=== PATIENT | male | born 2000 | race African-American/Black ===

== ENCOUNTER 2021-07-11 15:22 | Emergency (ER) | payer OTHER, SELFPAY ==
--- NOTE | 2021-07-11 16:00 | ER ---
Nurse's Notes [facility] Name: Costa Sapp Age: 20 yrs Sex: Male : 2000 Arrival Date: 07/11/2021 Time: 15:26 Bed 12 Private MD: Diagnosis: Unspecified sexually transmitted disease Presentation: 07/11 15:48 Chief complaint: Patient states: Burning with urination, reports yellow/white penile jl7 discharge with testicular pain x 2 days. Coronavirus screen: Vaccine status: Patient reports being unvaccinated. At this time, the client does not indicate any symptoms associated with coronavirus-19. Ebola Screen: No symptoms or risks identified at this time. Initial Sepsis Screen: Does the patient meet any 2 criteria? No. Patient's initial sepsis screen is negative. Does the patient have a suspected source of infection? No. Patient's initial sepsis screen is negative. Risk Assessment: Do you want to hurt yourself or someone else? Patient reports no desire to harm self or others. Onset of symptoms was July 09, 2021. Care prior to arrival: None. 15:48 Method Of Arrival: Ambulatory jl7 15:48 Acuity: DUARTE 4 jl7 Triage Assessment: 15:50 General: Appears in no apparent distress. uncomfortable, Behavior is calm, cooperative, jl7 appropriate for age. Pain: Complains of pain in burning with urination Pain currently is 8 out of 10 on a pain scale. Neuro: Level of Consciousness is awake, alert, obeys commands, Oriented to person, place, time, situation. Cardiovascular: Patient's skin is warm and dry. Respiratory: Airway is patent Respiratory effort is even, unlabored, Respiratory pattern is regular, symmetrical. : Reports burning with urination. Derm: Skin is pink, warm \T\ dry. Historical: - Allergies: 15:50 No Known Allergies; jl7 - Home Meds: 15:50 None [Active]; jl7 - PMHx: 15:50 None; jl7 - PSHx: 15:50 None; jl7 - Immunization history:: Adult Immunizations unknown. - Social history:: Smoking status: Patient denies any tobacco usage or history of. - Family history:: not pertinent. - Hospitalizations: : No recent hospitalization is reported. Screenin:55 Abuse screen: Denies threats or abuse. Denies injuries from another. Nutritional ld1 screening: No deficits noted. Tuberculosis screening: No symptoms or risk factors identified. Fall Risk None identified. Assessment: 15:55 General: Appears in no apparent distress. comfortable, Behavior is calm, cooperative, ld1 appropriate for age. Pain: Denies pain. Neuro: Level of Consciousness is awake, alert, obeys commands, Oriented to person, place, time, situation. Cardiovascular: Capillary refill < 3 seconds Patient's skin is warm and dry. Respiratory: Airway is patent Respiratory effort is even, unlabored, Respiratory pattern is regular, symmetrical. GI: Abdomen is flat, non-distended. : Reports burning with urination. EENT: No signs and/or symptoms were reported regarding the EENT system. Derm: No signs and/or symptoms reported regarding the dermatologic system. Musculoskeletal: No signs and/or symptoms reported regarding the musculoskeletal system. Vital Signs: 15:48 BP 145 / 77; Pulse 68; Resp 17; Temp 98.2; Pulse Ox 100% ; Weight 102.06 kg; Height 6 jl7 ft. 0 in. (182.88 cm) (R); Pain 8/10; 15:55 BP 154 / 76; Pulse 59; Resp 18; Pulse Ox 100% on R/A; ld1 15:48 Body Mass Index 30.52 (102.06 kg, 182.88 cm) jl7 ED Course: 15:26 Patient arrived in ED. mr 15:43 Eligio Hunt MD is Attending Physician. rn 15:43 Casey Stapleton PA is PHCP. cp 15:50 Triage completed. jl7 15:50 Arm band placed on right wrist. jl7 15:55 Patient has correct armband on for positive identification. Bed in low position. Call ld1 light in reach. Side rails up X2. Pulse ox on. NIBP on. Door closed. Noise minimized. Warm blanket given. 15:55 No provider procedures requiring assistance completed. ld1 16:13 Patient did not have IV access during this emergency room visit. ld1 Administered Medications: 16:00 Drug: Rocephin (cefTRIAXone) 250 mg Route: IM; Site: left gluteus; ld1 16:12 Follow up: Response: No adverse reaction ld1 16:00 Drug: metroNIDAZOLE 2 grams Route: PO; ld1 16:13 Follow up: Response: No adverse reaction ld1 Outcome: 15:59 Discharge ordered by . rn 16:13 Discharged to home ambulatory. ld1 16:13 Condition: stable 16:13 Discharge instructions given to patient, Instructed on discharge instructions, follow up and referral plans. medication usage, Demonstrated understanding of instructions, follow-up care, medications, Prescriptions given X 1. 16:13 Patient left the ED. ld1 Signatures: RicardoAntonia hadley mr GilbertEligio MD MD rn Casey Stapleton PA PA cp Leal, Jahala, RN RN jl7 Angelina Sanchez RN RN ld1
--- NOTE | 2021-07-11 16:00 | EDPHYS ---
Physician Documentation [facility] Name: Costa Sapp Age: 20 yrs Sex: Male : 2000 Arrival Date: 07/11/2021 Time: 15:26 Bed 12 Private MD: ED Physician Eligio Hunt HPI: 07/11 15:56 This 20 yrs old Black Male presents to ER via Ambulatory with complaints of STD rn Exposure. 15:56 The patient presents with a possible STD exposure, symptoms include yellow penile fern picker. Onset: The symptoms/episode began/occurred yesterday. Modifying factors: The symptoms are alleviated by nothing, the symptoms are aggravated by urinating. Associated signs and symptoms: Pertinent negatives: abdominal pain, fever. Severity of symptoms: At their worst the symptoms were mild, in the emergency department the symptoms are unchanged. The patient has not experienced similar symptoms in the past. The patient has not recently seen a physician. Patient states was out of town, had sex with a girl he did not know, now since yesterday has been having yellowish penile discharge. Also reports dysuria. No fever or abdominal pain. No other problems.. Historical: - Allergies: 15:50 No Known Allergies; jl7 - Home Meds: 15:50 None [Active]; jl7 - PMHx: 15:50 None; jl7 - PSHx: 15:50 None; jl7 - Immunization history:: Adult Immunizations unknown. - Social history:: Smoking status: Patient denies any tobacco usage or history of. - Family history:: not pertinent. - Hospitalizations: : No recent hospitalization is reported. ROS: 15:56 Constitutional: Negative for fever, chills, and weight loss, Abdomen/GI: Negative for rn abdominal pain, nausea, vomiting, diarrhea, and constipation, : Positive for penile discharge and dysuria Skin: Negative for injury, rash, and discoloration. Exam: 15:56 Constitutional: This is a well developed, well nourished patient who is awake, alert, rn and in no acute distress. Head/Face: Normocephalic, atraumatic. Eyes: Periorbital areas with no swelling, redness, or edema. Cardiovascular: Regular rate and rhythm. No pulse deficits. Respiratory: Speaking full sentences, unlabored. Neuro: Awake and alert, GCS 15 Vital Signs: 15:48 BP 145 / 77; Pulse 68; Resp 17; Temp 98.2; Pulse Ox 100% ; Weight 102.06 kg; Height 6 jl7 ft. 0 in. (182.88 cm) (R); Pain 8/10; 15:55 BP 154 / 76; Pulse 59; Resp 18; Pulse Ox 100% on R/A; ld1 15:48 Body Mass Index 30.52 (102.06 kg, 182.88 cm) jl7 MDM: 15:43 Patient medically screened. rn 15:56 Differential diagnosis: urethritis, STI, chlamydia, gonorrhea, trichomonas. Data rn reviewed: vital signs, nurses notes, and as a result, I will discharge patient. Counseling: I had a detailed discussion with the patient and/or guardian regarding: the historical points, exam findings, and any diagnostic results supporting the discharge/admit diagnosis, the need for outpatient follow up, to return to the emergency department if symptoms worsen or persist or if there are any questions or concerns that arise at home. Special discussion: I discussed with the patient/guardian in detail that at this point there is no indication for admission to the hospital. It is understood, however, that if the symptoms persist or worsen the patient needs to return immediately for re-evaluation. ED course: Discussed with the patient that swabs and results will take 2 or 3 days to return. Agrees to just take empiric treatment. Will DC home with doxycycline in addition to the Rocephin and Flagyl given here.. Administered Medications: 16:00 Drug: Rocephin (cefTRIAXone) 250 mg Route: IM; Site: left gluteus; ld1 16:12 Follow up: Response: No adverse reaction ld1 16:00 Drug: metroNIDAZOLE 2 grams Route: PO; ld1 16:13 Follow up: Response: No adverse reaction ld1 Disposition Summary: 07/11/21 15:59 Discharge Ordered Location: Home rn Problem: new rn Symptoms: are unchanged rn Condition: Stable rn Diagnosis - Unspecified sexually transmitted disease rn Followup: rn - With: Private Physician - When: As needed - Reason: Recheck today's complaints, Re-evaluation by your physician Discharge Instructions: - Discharge Summary Sheet rn - Preventing Sexually Transmitted Infections, Adult rn Forms: - Medication Reconciliation Form rn - Thank You Letter rn - Antibiotic engineer internship - Prescription Opioid Use rn Prescriptions: - Doxycycline Monohydrate 100 mg Oral Tablet - take 1 tablet by ORAL route every 12 hours for 10 days; 20 tablet; Refills: 0, rn Product Selection Permitted Signatures: Eligio Hunt MD MD rn Andi Minaya RN RN jl7 Angelina Sanchez RN RN ld1
[2021-07-11] MEDS ORDERED: metroNIDAZOLE 500 MG TABLET ONE (16:29)
[2021-07-11] MEDS ORDERED: CEFTRIAXONE 250 MG/VIAL ONE (16:29)
[2021-07-11] MEDS ORDERED: WATER FOR INJ,STERILE 10 ML ONE (16:30)
[2021-07-11 16:42] VITALS: TEMP 98.2; O2SAT 100
[2021-07-11 16:43] VITALS: BP 154/76
== END 2021-07-11 16:13 | disposition home or self-care (01) ==
LOC: ER 15:22
DX: A64 Unspecified sexually transmitted disease (principal)
CPT/HCPCS: 96372; 99283; J0696

== ENCOUNTER 2021-09-23 18:39 | Emergency (ER) | payer SELFPAY ==
--- NOTE | 2021-09-23 19:04 | EDPHYS ---
Physician Documentation [facility] Name: Costa Sapp Age: 20 yrs Sex: Male : 2000 Arrival Date: 09/23/2021 Time: 18:42 Bed 16 Private MD: ED Physician James Bynum HPI: 09/23 19:02 This 20 yrs old Black Male presents to ER via Unassigned with complaints of STD kb Exposure. 19:02 The patient presents with Onset: The symptoms/episode began/occurred 2 day(s) ago. kb Modifying factors: The symptoms are alleviated by nothing, the symptoms are aggravated by urinating. Associated signs and symptoms: Pertinent positives: dysuria, Pertinent negatives: abdominal pain, constipation, diarrhea, fever, hematuria, nausea, vomiting. Severity of symptoms: At their worst the symptoms were mild, moderate, in the emergency department the symptoms are unchanged. The patient has not experienced similar symptoms in the past. The patient has not recently seen a physician. Pt reports burning with urination and yellow penile discharge for 2 days. ROS: 19:01 Constitutional: Negative for fever, chills, and weight loss. kb 19:01 : Positive for burning with urination, penile discharge. 19:01 All other systems are negative. Exam: 19:01 Constitutional: This is a well developed, well nourished patient who is awake, alert, kb and in no acute distress. Head/Face: Normocephalic, atraumatic. ENT: Moist Mucous membranes Respiratory: Respirations even and unlabored. No increased work of breathing, no retractions or nasal flaring. Skin: Warm, dry with normal turgor. Normal color. MS/ Extremity: Pulses equal, no cyanosis. Neurovascular intact. Full, normal range of motion. Neuro: Awake and alert, GCS 15, oriented to person, place, time, and situation. Moves all extremities. Normal gait. Psych: Awake, alert, with orientation to person, place and time. Behavior, mood, and affect are within normal limits. MDM: 18:55 Patient medically screened. kb 19:01 Data reviewed: vital signs, nurses notes. Data interpreted: Pulse oximetry: on room air kb is 100 %. Interpretation: normal. Counseling: I had a detailed discussion with the patient and/or guardian regarding: the historical points, exam findings, and any diagnostic results supporting the discharge/admit diagnosis, the need for outpatient follow up, a family practitioner, to return to the emergency department if symptoms worsen or persist or if there are any questions or concerns that arise at home. Administered Medications: 19:17 Drug: Zithromax (azithromycin) 1 grams Route: PO; bb 19:17 Follow up: Response: No adverse reaction bb 19:17 Drug: Rocephin (cefTRIAXone) 500 mg Route: IM; Site: right deltoid; bb 19:17 Follow up: Response: No adverse reaction bb Disposition: 23:23 Co-signature as Attending Physician, James Bynum MD. [email or web address] Disposition Summary: 09/23/21 19:03 Discharge Ordered Location: Home kb Condition: Stable kb Diagnosis - Unspecified sexually transmitted disease kb Followup: kb - With: Emergency Department - When: As needed - Reason: Worsening of condition Followup: kb - With: Private Physician - When: 2 - 3 days - Reason: Recheck today's complaints, Continuance of care, Re-evaluation by your physician Discharge Instructions: - Discharge Summary Sheet kb - Preventing Sexually Transmitted Infections, Adult kb Forms: - Medication Reconciliation Form kb - Thank You Letter kb - Antibiotic Education kb - Prescription Opioid Use kb Signatures: Eufemia Ibanez FNP-C FNP-Yomaira Saenz RN RN James Maria MD MD mh7
[2021-09-23] MEDS ORDERED: CEFTRIAXONE 500 MG/VIAL ONE (19:12)
[2021-09-23] MEDS ORDERED: AZITHROMYCIN 250 MG TAB ONE (19:12)
[2021-09-23] MEDS ORDERED: WATER FOR INJ,STERILE 10 ML ONE (19:12)
--- NOTE | 2021-09-23 19:21 | ER ---
Nurse's Notes [facility] Name: Costa Sapp Age: 20 yrs Sex: Male : 2000 Arrival Date: 09/23/2021 Time: 18:42 Bed 16 Private MD: Diagnosis: Unspecified sexually transmitted disease Assessment: 09/23 19:18 Reassessment: Patient is alert, oriented x 3, equal unlabored respirations, skin bb warm/dry/pink. Pt seen by this RN at discharge. Instructed to follow up with PCP. Understands and verbalized discharge instructions. Patient denies pain at this time. ED Course: 18:42 Patient arrived in ED. ja2 18:49 Eufemia Ibanez FNP-C is [facility]. kb 18:49 James Bynum MD is Attending Physician. kb 19:18 Yomaira Blanton, RN is Primary Nurse. bb 19:20 No provider procedures requiring assistance completed. Patient did not have IV access bb during this emergency room visit. Administered Medications: 19:17 Drug: Zithromax (azithromycin) 1 grams Route: PO; bb 19:17 Follow up: Response: No adverse reaction bb 19:17 Drug: Rocephin (cefTRIAXone) 500 mg Route: IM; Site: right deltoid; bb 19:17 Follow up: Response: No adverse reaction bb Outcome: 19:03 Discharge ordered by MD. kb 19:20 Discharged to home ambulatory. bb 19:20 Condition: stable 19:20 Discharge instructions given to patient, Instructed on discharge instructions, follow up and referral plans. Demonstrated understanding of instructions, follow-up care. 19:20 Patient left the ED. bb Signatures: Eufemia Ibanez FNP-C FNP-Yomaira Saenz, RN RN Nora Cavazos
== END 2021-09-23 19:20 | disposition home or self-care (01) ==
LOC: ER 18:39
DX: A64 Unspecified sexually transmitted disease (principal)
CPT/HCPCS: 96372; 99282; J0696